=== PATIENT | male | born 1955 | race Caucasian/White ===

== ENCOUNTER → 2016-10-29 | Outpatient (CLI) | payer OTHER ==
[~2016-10-29] MED LIST: ADVAIR 500/501 DISK IH; CALCIUM CITRAT1 EA14 PO; NASONEX17 GM BOTH NARES; PROTONIX40 MG PO; SINGULAIR10 MG PO; SPIRIVA1 INHALATI IH; VITAMIN D2000 UNIT PO; ZYRTEC10 M2 PO
== END | disposition home or self-care (01) ==
LOC: RAD 10:46
DX: R91.1 Solitary pulmonary nodule (principal)
CPT/HCPCS: 71250

== ENCOUNTER 2017-05-12 16:38 | Inpatient (IN) | payer OTHER ==
[~2017-05-12] VITALS: Ht 182.9 cm; Wt 58.7 kg
[2017-05-12 17:20] LABS: HEMATOCRIT 43.9 % (38.0-50.0); MCH 28.7 PG (29.0-34.0); MCHC 33.3 G/DL (30.0-36.0); MCV 86.4 FL (86-99); PLATELET COUNT 214 K/uL (156-360); RBC DIS.WIDTH-CV 11.3 % (11.8-14.6); RED BLOOD COUNT 5.08 M/uL (4.00-5.50); WHITE BLOOD COUNT 29.8 K/uL (4.1-10.2)
[2017-05-12 17:35] LABS: CHLORIDE 99 mEq/L (99-109); POTASSIUM 4.1 mEq/L (3.7-5.4); SODIUM 136 mEq/L (136-147)
[2017-05-12 17:37] LABS: GLUCOSE 124 mg/dL (70-99)
[2017-05-12 17:39] LABS: ANION GAP 13 MEQ/L (2-14)
[2017-05-12 17:41] LABS: GFR ESTIMATE (CALCULATED) > 59 mL/min/
[2017-05-12 17:42] LABS: UREA NITROGEN (BUN) 19 mg/dL (9-23)
[2017-05-12 17:49] LABS: TROP-I INTERPRETATION NEGATIVE; TROPONIN-I < 0.01 ng/mL (0.0-0.30)
[2017-05-12] MEDS ORDERED: MONTELUKAST SOD10 MG PO (20:01)
[2017-05-12] MEDS ORDERED: THEOPHYLLINE400 MG PO (20:01)
[2017-05-12] MEDS ORDERED: BREO ELLIPTA 21 EACH IH (20:02)
[2017-05-12] MEDS ORDERED: INCRUSE ELLI62.5 MCG IH (20:02)
[2017-05-12] MEDS ORDERED: DUONEB 2.5-0.5 M3 ML AEROSOL (20:05)
[2017-05-12] MEDS ORDERED: ONE DAILY FOR1 EAC2 PO (20:05)
[2017-05-12] MEDS ORDERED: FISH OIL 1,0001 EAC7 PO (20:07)
[2017-05-12] MEDS ORDERED: ADVIL200 MG PO (20:09)
[2017-05-12 22:10] VITALS: BP 114/73
[2017-05-13 03:42] VITALS: BP 102/65
[2017-05-13 06:15] LABS: EOSINOPHIL (%) 0 % (0-5); HEMATOCRIT 40.2 % (38.0-50.0); IMMATURE GRANULOCYTE (%) 1.1 % (0.0-0.7); IMMATURE GRANULOCYTE COUNT 0.3 K/uL; INSTRUMENT ABS NEUTROPHIL CT 19.6 K/uL; LYMPHOCYTE COUNT 2.1 K/uL (1.0-2.8); MCH 29.5 PG (29.0-34.0); MCHC 33.6 G/DL (30.0-36.0); MEAN PLAT.VOLUME 10.6 uM^3 (9.0-12.4); MONOCYTE COUNT 2.5 K/uL (0-0.8); NEUTROPHIL (%) 80.1 % (45-76); NEUTROPHIL COUNT 19.6 K/uL (1.8-6.4); PLATELET COUNT 192 K/uL (156-360); RBC DIS.WIDTH-CV 11.6 % (11.8-14.6); RED BLOOD COUNT 4.57 M/uL (4.00-5.50); WHITE BLOOD COUNT 24.5 K/uL (4.1-10.2)
[2017-05-13 06:48] LABS: ANION GAP 11 MEQ/L (2-14); CHLORIDE 104 MEQ/L (99-109); GFR ESTIMATE (CALCULATED) > 59 mL/min/; POTASSIUM 3.9 MEQ/L (3.7-5.4); SAMPLE HEMOLYSIS CHECK 0; SAMPLE ICTERIC CHECK 0; SAMPLE LIPEMIA CHECK 0; SODIUM 140 MEQ/L (136-147); UREA NITROGEN (BUN) 13 mg/dL (9-23)
[2017-05-13 06:50] LABS: GLUCOSE 83 mg/dL (70-99)
[2017-05-13 07:05] LABS: Estimated Average Glucose 111 mg/dL (70-123); HEMOGLOBIN A1c (GLYCOHEMOGLOB) 5.5 % HGB (Below 5.7)
[2017-05-13 07:37] VITALS: BP 107/64
[2017-05-13 09:29] LABS: INTERNAL CONTROL VALID? YES
[2017-05-13 11:11] VITALS: BP 100/67
[2017-05-13 14:25] LABS: TROP-I INTERPRETATION NEGATIVE; TROPONIN-I < 0.01 ng/mL (0.0-0.30)
[2017-05-13 15:04] VITALS: BP 119/66
[2017-05-13 20:02] VITALS: BP 107/65
[2017-05-14] VITALS (9 sets, daily range): BP systolic 96–117; BP diastolic 56–75
[2017-05-15] VITALS (7 sets, daily range): BP systolic 100–113; BP diastolic 59–74
[2017-05-16 04:32] VITALS: BP 118/64
[2017-05-16 06:20] LABS: HEMATOCRIT 39.7 % (38.0-50.0); MCH 29.3 PG (29.0-34.0); MCHC 33.5 G/DL (30.0-36.0); MCV 87.4 FL (86-99); MEAN PLAT.VOLUME 10.4 uM^3 (9.0-12.4); PLATELET COUNT 271 K/uL (156-360); RBC DIS.WIDTH-CV 11.9 % (11.8-14.6); RED BLOOD COUNT 4.54 M/uL (4.00-5.50); WHITE BLOOD COUNT 18.8 K/uL (4.1-10.2)
[2017-05-16 06:26] LABS: ANION GAP 9 MEQ/L (2-14); CHLORIDE 106 MEQ/L (99-109); GFR ESTIMATE (CALCULATED) > 59 mL/min/; SAMPLE HEMOLYSIS CHECK 0; SAMPLE ICTERIC CHECK 0; SAMPLE LIPEMIA CHECK 0; SODIUM 142 MEQ/L (136-147)
[2017-05-16 06:28] LABS: GLUCOSE 184 mg/dL (70-99); UREA NITROGEN (BUN) 24 mg/dL (9-23)
[2017-05-16 08:30] VITALS: BP 117/70
[2017-05-16 12:05] VITALS: BP 114/65
[2017-05-16 16:00] VITALS: BP 118/74
[2017-05-16 18:50] VITALS: BP 104/59
[2017-05-16 23:11] VITALS: BP 114/62
[2017-05-17 05:00] VITALS: BP 112/71
[2017-05-17 06:35] LABS: HEMATOCRIT 39.6 % (38.0-50.0); MCH 29.7 PG (29.0-34.0); MCHC 34.1 G/DL (30.0-36.0); PLATELET COUNT 265 K/uL (156-360); RBC DIS.WIDTH-CV 11.9 % (11.8-14.6); RBC DIS.WIDTH-SD 38.3 % (39-53); RED BLOOD COUNT 4.55 M/uL (4.00-5.50); WHITE BLOOD COUNT 13.3 K/uL (4.1-10.2)
[2017-05-17 07:16] VITALS: BP 118/70
[2017-05-17 13:16] VITALS: BP 118/60
[2017-05-17 19:21] VITALS: BP 120/68
[2017-05-17 23:24] VITALS: BP 124/72
[2017-05-18 04:55] VITALS: BP 109/71
[2017-05-18] MEDS ORDERED: PREDNISONE20 MG PO (08:00)
[2017-05-18] MEDS ORDERED: CARDIZEM CD,CA240 MG PO (08:00)
[2017-05-18] MEDS ORDERED: ELIQUIS5 MG PO (08:00)
[2017-05-18] MEDS ORDERED: LEVAQUIN750 MG PO (08:02)
== END 2017-05-18 09:25 | disposition home or self-care (01) | DRG 190 ==
LOC: EME 16:38 → 5SOUTH 20:52 → EDOF 20:52 → ENRESERV 20:57 → 5SOUTH 21:55 → ENRESERV 05-14 09:35 → 4EAST 05-14 10:11
PROVIDERS: Emergency Medicine; Hospitalist; Internal Medicine; Internal Medicine Cardiovascular Disease; Physician Assistant Medical
DX: J44.0 Chronic obstructive pulmonary disease with (acute) lower respiratory infection (principal); J15.1 Pneumonia due to Pseudomonas; J44.1 Chronic obstructive pulmonary disease with (acute) exacerbation; R09.02 Hypoxemia; R73.9 Hyperglycemia, unspecified; I08.1 Rheumatic disorders of both mitral and tricuspid valves; I27.2 Other secondary pulmonary hypertension; I48.0 Paroxysmal atrial fibrillation; Z99.81 Dependence on supplemental oxygen; Z91.19 Patient's noncompliance with other medical treatment and regimen; Z90.3 Acquired absence of stomach [part of]
CPT/HCPCS: 71010; 71020; 80048; 80198; 83036; 83605; 84484; 85025; 85027; 87040; 87070; 87077; 87186; 87205; 87449; 93005; 93306; 94010; 94640; 94640 76; 94760; 94799; 99202; 99281; 99285; J0456; J0692; J0696; J1644; J2930; J7030; J7050; J7512; J7644

== ENCOUNTER 2017-10-17 13:06 | Observation (INO) | payer OTHER ==
[~2017-10-17] VITALS: Ht 182.9 cm; Wt 89.7 kg
[~2017-10-17 13:06] MED LIST changes: +ADVIL200 MG PO; +BREO ELLIPTA 21 EACH IH; +CARDIZEM CD,CA240 MG PO; +DUONEB 2.5-0.5 M3 ML AEROSOL; +ELIQUIS5 MG PO; +FISH OIL 1,0001 EAC7 PO; +INCRUSE ELLI62.5 MCG IH; +LEVAQUIN750 MG PO; +MONTELUKAST SOD10 MG PO; +ONE DAILY FOR1 EAC2 PO; +PREDNISONE20 MG PO; +THEOPHYLLINE400 MG PO
[2017-10-17 14:30] LABS: BASOPHIL (%) 0.2 % (0-1); EOSINOPHIL (%) 0.8 % (0-5); EOSINOPHIL COUNT 0.1 K/uL (0-0.3); HEMATOCRIT 48.6 % (38.0-50.0); HEMOGLOBIN 16.3 G/DL (12.5-16.6); IMMATURE GRANULOCYTE (%) 0.5 % (0.0-0.7); LYMPHOCYTE (%) 36.8 % (15-42); LYMPHOCYTE COUNT 3.6 K/uL (1.0-2.8); MCH 29.1 PG (29.0-34.0); MCHC 33.5 G/DL (30.0-36.0); MCV 86.6 FL (86-99); MONOCYTE (%) 7.7 % (3-12); MONOCYTE COUNT 0.8 K/uL (0-0.8); NEUTROPHIL COUNT 5.3 K/uL (1.8-6.4); PLATELET COUNT 177 K/uL (156-360); RBC DIS.WIDTH-CV 11.9 % (11.8-14.6); RBC DIS.WIDTH-SD 38.1 % (39-53); RED BLOOD COUNT 5.61 M/uL (4.00-5.50); WHITE BLOOD COUNT 9.9 K/uL (4.1-10.2)
[2017-10-17 14:38] LABS: CHLORIDE 98 mEq/L (99-109); POTASSIUM 3.9 mEq/L (3.7-5.4); SODIUM 138 mEq/L (136-147)
[2017-10-17 14:40] LABS: GLUCOSE 96 mg/dL (70-99)
[2017-10-17 14:44] LABS: CREATININE 0.7 mg/dL (0.6-1.3); GFR ESTIMATE (CALCULATED) > 59 mL/min/ (58.99-99999)
[2017-10-17 14:45] LABS: UREA NITROGEN (BUN) 10 mg/dL (9-23)
[2017-10-18 06:00] VITALS: BP 131/81
[2017-10-18 07:14] LABS: HEMATOCRIT 47.9 % (38.0-50.0); HEMOGLOBIN 15.6 G/DL (12.5-16.6); MCHC 32.6 G/DL (30.0-36.0); MCV 85.8 FL (86-99); PLATELET COUNT 197 K/uL (156-360); RBC DIS.WIDTH-CV 11.8 % (11.8-14.6); RBC DIS.WIDTH-SD 37.1 % (39-53); RED BLOOD COUNT 5.58 M/uL (4.00-5.50); WHITE BLOOD COUNT 7.4 K/uL (4.1-10.2)
[2017-10-18 07:42] LABS: CHLORIDE 100 MEQ/L (99-109); CREATININE 0.7 MG/DL (0.6-1.3); GFR ESTIMATE (CALCULATED) > 59 mL/min/ (58.99-99999); HDL CHOLESTEROL 31 MG/DL (Desirable>=40); LDL CHOLESTEROL 98 mg/dL (Desirable<100); NON-HDL CHOLESTEROL 110 mg/dL (Desirable<160); SODIUM 140 MEQ/L (136-147); TOTAL CHOLESTEROL 141 mg/dL (Desirable<200); TRIGLYCERIDES 58 MG/DL (Normal: <150); UREA NITROGEN (BUN) 16 mg/dL (9-23)
[2017-10-18 07:44] LABS: GLUCOSE 168 mg/dL (70-99)
[2017-10-18 08:40] VITALS: BP 127/79
[2017-10-18 16:29] VITALS: BP 114/66
[2017-10-18 20:29] VITALS: BP 121/65
[2017-10-19 00:20] VITALS: BP 114/66
[2017-10-19 04:55] VITALS: BP 109/58
[2017-10-19 07:35] VITALS: BP 121/70
[2017-10-19 11:55] VITALS: BP 121/64
[2017-10-19 15:32] LABS: HEMOGLOBIN A1c (GLYCOHEMOGLOB) 5.5 % (Below 5.7)
== END 2017-10-19 12:54 | disposition home or self-care (01) ==
LOC: EME 13:06 → 5SOUTH 22:17 → EDOF 22:17 → ENRESERV 22:25 → EDOF 10-18 00:44 → ENRESERV 10-18 04:56 → 5SOUTH 10-18 05:51
PROVIDERS: Physician Assistant; Physician Assistant Medical
DX: R51 Headache (principal); R42 Dizziness and giddiness; J43.9 Emphysema, unspecified; R09.02 Hypoxemia; Z99.81 Dependence on supplemental oxygen; Z91.19 Patient's noncompliance with other medical treatment and regimen; R53.1 Weakness; J32.9 Chronic sinusitis, unspecified; R09.81 Nasal congestion; Z79.01 Long term (current) use of anticoagulants
CPT/HCPCS: 70450; 70544; 70551; 71046; 80048; 80061; 83036; 85025; 85027; 94640; 94640 76; 94799; 99202; 99281; 99285; G0378; J1100; J1200; J1650; J1885

== ENCOUNTER 2018-03-21 15:05 | Inpatient (IN) | payer OTHER ==
[~2018-03-21] VITALS: Ht 185.4 cm; Wt 85.7 kg
[2018-03-21 15:54] LABS: PLATELET COUNT 359 K/uL (156-360)
[2018-03-21 16:03] LABS: CHLORIDE 99 mEq/L (99-109); POTASSIUM 4.2 mEq/L (3.7-5.4); SODIUM 135 mEq/L (136-147)
[2018-03-21 16:04] LABS: GLUCOSE 148 mg/dL (70-99)
[2018-03-21 16:06] LABS: HEMATOCRIT 44.6 % (38.0-50.0); HEMOGLOBIN 15.1 G/DL (12.5-16.6); MCHC 33.9 G/DL (30.0-36.0); MCV 85.8 FL (86-99); RBC DIS.WIDTH-CV 11.9 % (11.8-14.6); RBC DIS.WIDTH-SD 37.3 % (39-53)
[2018-03-21 16:08] LABS: CREATININE 0.9 mg/dL (0.6-1.3); GFR ESTIMATE (CALCULATED) > 59 mL/min/ (58.99-99999)
[2018-03-21 16:09] LABS: UREA NITROGEN (BUN) 16 mg/dL (9-23)
[2018-03-21 16:11] LABS: WHITE BLOOD COUNT 36.1 K/uL (4.1-10.2)
[2018-03-21 16:14] LABS: TROP-I INTERPRETATION NEGATIVE; TROPONIN-I < 0.01 ng/mL (0.0-0.30)
[2018-03-21] MEDS ORDERED: PREDNISONE10 MG PO (17:19)
[2018-03-21] MEDS ORDERED: LEVOFLOXACIN500 MG PO (17:20)
[2018-03-21] MEDS ORDERED: DOXYCYCLINE HY100 MG PO (17:20)
[2018-03-21] MEDS ORDERED: BENZONATATE100 MG PO (17:20)
[2018-03-21] MEDS ORDERED: SPIRIVA RESPIMAT4 GM IH (17:20)
[2018-03-21 18:10] VITALS: BP 101/64
[2018-03-21 23:47] VITALS: BP 106/64
[2018-03-22 00:19] LABS: APPEARANCE CLEAR ((CLEAR)); BILIRUBIN NEGATIVE; BLOOD NEGATIVE; COLOR STRAW ((YELLOW)); GLUCOSE (STRIP) NEGATIVE; KETONES NEGATIVE; LEUKOCYTES NEGATIVE; NITRITE NEGATIVE; PROTEIN (STRIP) NEGATIVE; SPECIFIC GRAVITY 1.006 (1.000-1.030); UCUL ADDED? NO; UROBILINOGEN 0.2 MG/DL (0.2-1.0)
[2018-03-22 04:10] VITALS: BP 113/63
[2018-03-22 06:21] LABS: PLATELET COUNT 345 K/uL (156-360)
[2018-03-22 06:23] LABS: HEMOGLOBIN 14.4 G/DL (12.5-16.6); RED BLOOD COUNT 5.07 M/uL (4.00-5.50)
[2018-03-22 06:24] LABS: HEMATOCRIT 44.6 % (38.0-50.0); MCH 28.4 PG (29.0-34.0); MCHC 32.3 G/DL (30.0-36.0); RBC DIS.WIDTH-SD 38.4 % (39-53)
[2018-03-22 06:26] LABS: WHITE BLOOD COUNT 34.6 K/uL (4.1-10.2)
[2018-03-22 06:46] LABS: CHLORIDE 104 MEQ/L (99-109); CREATININE 0.7 MG/DL (0.6-1.3); GFR ESTIMATE (CALCULATED) > 59 mL/min/ (58.99-99999); GLUCOSE 141 mg/dL (70-99); UREA NITROGEN (BUN) 17 mg/dL (9-23)
[2018-03-22 06:59] LABS: SODIUM 142 MEQ/L (136-147)
[2018-03-22 07:27] VITALS: BP 110/65
[2018-03-22 12:02] VITALS: BP 111/65
[2018-03-22 15:41] VITALS: BP 117/61
[2018-03-22 23:55] VITALS: BP 132/76
[2018-03-23 08:12] VITALS: BP 111/65
[2018-03-23 08:49] LABS: BASOPHIL (%) 0.2 % (0-1); BASOPHIL COUNT 0.1 K/uL (0-0.1); EOSINOPHIL (%) 0 % (0-5); IMMATURE GRANULOCYTE (%) 1.2 % (0.0-0.7); LYMPHOCYTE (%) 6.1 % (15-42); LYMPHOCYTE COUNT 2.2 K/uL (1.0-2.8); MONOCYTE (%) 4.1 % (3-12); MONOCYTE COUNT 1.5 K/uL (0-0.8); NEUTROPHIL (%) 88.4 % (45-76); NEUTROPHIL COUNT 32.2 K/uL (1.8-6.4); PLATELET COUNT 345 K/uL (156-360)
[2018-03-23 08:50] LABS: HEMATOCRIT 43.4 % (38.0-50.0); HEMOGLOBIN 14.2 G/DL (12.5-16.6); MCH 28.6 PG (29.0-34.0); MCHC 32.7 G/DL (30.0-36.0); MCV 87.5 FL (86-99); RBC DIS.WIDTH-CV 12.3 % (11.8-14.6); RED BLOOD COUNT 4.96 M/uL (4.00-5.50)
[2018-03-23 08:51] LABS: WHITE BLOOD COUNT 36.4 K/uL (4.1-10.2)
[2018-03-23 09:13] LABS: 6-HOUR TOBRAMYCIN 3.3 UG/ML; CHLORIDE 99 MEQ/L (99-109); CREATININE 0.6 MG/DL (0.6-1.3); GFR ESTIMATE (CALCULATED) > 59 mL/min/ (58.99-99999); GLUCOSE 152 mg/dL (70-99); POTASSIUM 4.5 MEQ/L (3.7-5.4); SODIUM 138 MEQ/L (136-147); UREA NITROGEN (BUN) 16 mg/dL (9-23)
[2018-03-23 16:12] VITALS: BP 98/53
[2018-03-23 23:46] VITALS: BP 115/69
[2018-03-24 05:52] LABS: BASOPHIL (%) 0.2 % (0-1); EOSINOPHIL (%) 0 % (0-5); HEMATOCRIT 43.4 % (38.0-50.0); LYMPHOCYTE (%) 4.9 % (15-42); LYMPHOCYTE COUNT 1.2 K/uL (1.0-2.8); MCH 28.3 PG (29.0-34.0); MCHC 32.3 G/DL (30.0-36.0); MCV 87.9 FL (86-99); MONOCYTE (%) 2.6 % (3-12); MONOCYTE COUNT 0.6 K/uL (0-0.8); NEUTROPHIL (%) 91.3 % (45-76); NEUTROPHIL COUNT 21.6 K/uL (1.8-6.4); PLATELET COUNT 316 K/uL (156-360); RBC DIS.WIDTH-CV 12.4 % (11.8-14.6); RBC DIS.WIDTH-SD 39.7 % (39-53); RED BLOOD COUNT 4.94 M/uL (4.00-5.50); WHITE BLOOD COUNT 23.6 K/uL (4.1-10.2)
[2018-03-24 06:21] LABS: CHLORIDE 102 MEQ/L (99-109); CREATININE 0.6 MG/DL (0.6-1.3); GFR ESTIMATE (CALCULATED) > 59 mL/min/ (58.99-99999); GLUCOSE 161 mg/dL (70-99); POTASSIUM 4.7 MEQ/L (3.7-5.4); SODIUM 141 MEQ/L (136-147); UREA NITROGEN (BUN) 24 mg/dL (9-23)
[2018-03-24 08:11] VITALS: BP 112/64
[2018-03-24 11:55] VITALS: BP 201/91
[2018-03-24 15:50] VITALS: BP 113/63
[2018-03-24 23:22] VITALS: BP 113/55
[2018-03-25 07:30] VITALS: BP 115/62
[2018-03-25 09:05] LABS: BASOPHIL (%) 0.1 % (0-1); EOSINOPHIL (%) 0 % (0-5); HEMATOCRIT 45.4 % (38.0-50.0); HEMOGLOBIN 14.5 G/DL (12.5-16.6); IMMATURE GRANULOCYTE (%) 1.2 % (0.0-0.7); LYMPHOCYTE (%) 8.7 % (15-42); LYMPHOCYTE COUNT 1.9 K/uL (1.0-2.8); MCH 28.1 PG (29.0-34.0); MCHC 31.9 G/DL (30.0-36.0); MONOCYTE (%) 5.5 % (3-12); MONOCYTE COUNT 1.2 K/uL (0-0.8); NEUTROPHIL (%) 84.5 % (45-76); NEUTROPHIL COUNT 18.2 K/uL (1.8-6.4); PLATELET COUNT 372 K/uL (156-360); RBC DIS.WIDTH-CV 12.1 % (11.8-14.6); RBC DIS.WIDTH-SD 39.3 % (39-53); RED BLOOD COUNT 5.16 M/uL (4.00-5.50); WHITE BLOOD COUNT 21.6 K/uL (4.1-10.2)
[2018-03-25 09:31] LABS: CHLORIDE 101 MEQ/L (99-109); CREATININE 0.6 MG/DL (0.6-1.3); GFR ESTIMATE (CALCULATED) > 59 mL/min/ (58.99-99999); POTASSIUM 4.7 MEQ/L (3.7-5.4); SODIUM 141 MEQ/L (136-147); UREA NITROGEN (BUN) 24 mg/dL (9-23)
[2018-03-25 09:33] LABS: GLUCOSE 116 mg/dL (70-99)
[2018-03-25 16:10] VITALS: BP 115/83
[2018-03-26 00:27] VITALS: BP 114/62
[2018-03-26 07:12] VITALS: BP 114/58
[2018-03-26 09:01] LABS: BASOPHIL (%) 0.2 % (0-1); EOSINOPHIL (%) 0.2 % (0-5); HEMATOCRIT 44.8 % (38.0-50.0); HEMOGLOBIN 14.5 G/DL (12.5-16.6); IMMATURE GRANULOCYTE (%) 1.1 % (0.0-0.7); LYMPHOCYTE (%) 18.3 % (15-42); MCH 28.1 PG (29.0-34.0); MCHC 32.4 G/DL (30.0-36.0); MCV 86.8 FL (86-99); MONOCYTE COUNT 1.3 K/uL (0-0.8); NEUTROPHIL (%) 72.2 % (45-76); NEUTROPHIL COUNT 11.9 K/uL (1.8-6.4); PLATELET COUNT 331 K/uL (156-360); RBC DIS.WIDTH-CV 12.1 % (11.8-14.6); RBC DIS.WIDTH-SD 38.7 % (39-53); RED BLOOD COUNT 5.16 M/uL (4.00-5.50); WHITE BLOOD COUNT 16.5 K/uL (4.1-10.2)
[2018-03-26 09:18] LABS: CHLORIDE 100 MEQ/L (99-109); CREATININE 0.6 MG/DL (0.6-1.3); GFR ESTIMATE (CALCULATED) > 59 mL/min/ (58.99-99999); GLUCOSE 88 mg/dL (70-99); POTASSIUM 4.3 MEQ/L (3.7-5.4); SODIUM 137 MEQ/L (136-147); UREA NITROGEN (BUN) 20 mg/dL (9-23)
[2018-03-26] MEDS ORDERED: PREDNISONE20 MG PO (13:06)
[2018-03-26] MEDS ORDERED: MUCINEX600 MG PO (13:07)
[2018-03-26] MEDS ORDERED: CEFEPIME HCL2 GM IV (14:16)
[2018-03-27 01:00] LABS: QGTB-NIL 0.02 IU/mL (()); QUANTIFERON TB GOLD NEGATIVE (Negative); TB AG-NIL 0.01 IU/mL (())
== END 2018-03-26 15:44 | disposition home or self-care (01) | DRG 178 ==
LOC: EME 15:05 → EDOF 16:41 → 5SOUTH 16:41 → ENRESERV 16:46 → 5SOUTH 18:00 → ENPENDDIS 03-26 15:31 → 5SOUTH 03-26 15:44
PROVIDERS: Internal Medicine; Internal Medicine Pulmonary Disease; Nurse Practitioner Family; Physician Assistant
DX: J85.0 Gangrene and necrosis of lung (principal); B96.5 Pseudomonas (aeruginosa) (mallei) (pseudomallei) as the cause of diseases classified elsewhere; J47.0 Bronchiectasis with acute lower respiratory infection; J47.1 Bronchiectasis with (acute) exacerbation; Z99.81 Dependence on supplemental oxygen; I95.9 Hypotension, unspecified; D72.829 Elevated white blood cell count, unspecified; T38.0X5A Adverse effect of glucocorticoids and synthetic analogues, initial encounter; R04.2 Hemoptysis; R51 Headache; R73.9 Hyperglycemia, unspecified; Z90.3 Acquired absence of stomach [part of]
CPT/HCPCS: 71046; 71250; 76937; 80048; 80200; 81003; 83605; 84484; 85025; 85027; 86480 90; 87040; 87070; 87205; 87449; 87493; 87641; 93005; 94640; 94664; 94669; 94799; 99281; 99284; C1751; C1894; J0456; J0692; J0696; J1650; J2543; J2920; J3260; J7030; J7050; J7512